=== PATIENT | male | born 1975 | race Caucasian/White ===

== ENCOUNTER 2018-08-13 12:08 | Emergency (ER) | payer SELFPAY ==
[~2018-08-13] VITALS: Ht 157.5 cm; Wt 72.7 kg
[2018-08-13] MEDS: BUPIVACAINE HCL/PF 0.25% 10 ML VIAL INJ ONE (14:45)
[2018-08-13] MEDS: POVIDONE-IODINE 10% 15 ML SOLUTION UD TP ONE (14:45)
[2018-08-13] MEDS: BACITRACIN 0.9 GM PACKET OINTMENT TP ONE (14:51)
[2018-08-13] MEDS: OxyCODONE HCL/ACETAMINOPHEN 5-325 MG TABLET PO ONE (14:51)
[2018-08-13] MEDS: PERTUSS(ACELL),DIPH,TET VAC/PF 0.5 ML VIAL IM ONE (14:52)
[2018-08-13 16:56] VITALS: BP 130/91
== END 2018-08-13 16:55 | disposition home or self-care (01) ==
LOC: EMS 12:11
DX: S61.315A Laceration without foreign body of left ring finger with damage to nail, initial encounter (principal); W45.8XXA Other foreign body or object entering through skin, initial encounter; Y93.89 Activity, other specified; Y92.89 Other specified places as the place of occurrence of the external cause; Y99.8 Other external cause status
CPT/HCPCS: 12002; 73140; 90471; 90715; 99283; J3490